=== PATIENT | male | born 1985 | race Caucasian/White ===

== ENCOUNTER 2017-08-21 12:46 | Outpatient (CLI) | payer OTHER ==
--- OUTSIDE RECORDS SUMMARY | 2017-08-21 12:48 | XMS | Clinical Summary ---
:1985 Author Organization [facility] Address [address] [place] [address] Phone Care Team Providers Name Role Phone , Primary Care Provider Unavailable Allergies Not on File Current Medications Not on file Active Problems Not on file Social History Tobacco Use Types Packs/Day Years Used Date Never Assessed Sex Assigned at Date Recorded Not on file Last Filed Vital Signs Not on file Plan of Treatment Not on file Results Not on filefrom Last 3 Months
--- NOTE | 2017-08-21 14:53 | RAD ---
FOUR VIEWS OF THE LUMBAR SPINE: Comparison: None. History: Prior back surgery at L4-5 in 2015 with back pain radiating down the right leg. FINDINGS: AP, lateral, flexion, and extension views of the lumbosacral spine shows normal height and alignment of the vertebral bodies without fracture or subluxation. Alignment is unchanged with flexion and ex tension. There appears to be mild posterior facet arthrosis in the lower lumbosacral spine. IMPRESSION: No evidence of acute lumbar spine abnormality. POS: [facility]
--- NOTE | 2017-08-21 15:57 | MRI ---
EXAM: LUMBAR SPINE MRI WITHOUT CONTRAST 08/21/17 HISTORY: Back surgery at L4-5 in 2014. Back pain radiating down the right leg. COMPARISON: None. TECHNIQUE: The lumbar spine MRI is performed without intravenous gadolinium administration. Multisequential, mu ltiplanar imaging is performed. FINDINGS: Appropriate T1 marrow signal intensity of the lumbar vertebrae. Lumbar spine vertebral height is delonte ntained. There is no fracture. No significant STIR hyperintensity to suggest vertebral body edema du e to fracture. No MR evidence of ligamentous injury. There is symmetric signal intensity of the psoas muscles. Appropriate signal intensity in the visual ized solid organs. The conus medullaris terminates at the superior end plate of T12. There are posterior decompressive laminectomy changes at L4-L5. T11-T12: Broad based disc bulge abuts the thecal sac. There is mild mass effect upon the thoracic co rd. At least mild central canal stenosis. Neural foramina are patent bilaterally. T12-L1: Adequate disc hydration. No significant central canal stenosis. Neural foramina are patent. L1-L2: Adequate disc hydration. No significant central canal stenosis. Neural foramina are patent. L2-L3: Adequate disc hydration. No significant central canal stenosis. Neural foramina are patent. L3-L4: Adequate disc hydration. No significant central canal stenosis. Neural foramina are patent. L4-L5: Disc desiccation with moderate loss of disc space height. There is a central/left subarticula r disc protrusion. Disc material obscures the traversing left L5 nerve root and causes mild mass eff ect on the traversing left S1 nerve root. There is also mild narrowing of the right subarticular zon e with disc material abutting but not obscuring the traversing right L5 nerve root. Mild right and m oderate left neural foraminal narrowing. L5-S1: Disc desiccation with moderate to severe loss of disc space height. There is a generalized di sc bulge. Disc material encroaches upon the right subarticular zone and causes partial obscuration o f the traversing right S2 nerve root. No significant mass effect involving the thecal sac. However, there is mild mass effect and minimal obscuration of the traversing left S1 nerve root. Mild bilater al foraminal narrowing. IMPRESSION: 1. Degenerative disc disease at L4-L5. There is mass effect and obscuration of the traversing l eft L5 nerve root along with mass effect without obscuration traversing the left S1 nerve root. 2. Degenerative disc disease at L5-S1. There is asymmetric right greater than left subarticular zone narrowing. There is mass effect in the bilateral S1 nerve roots, right greater than left. POS: [facility]
== END 2017-08-21 12:47 | disposition home or self-care (01) ==
LOC: SCSMRI 12:46
PROVIDERS: ATTEND Neurological Surgery
DX: M51.16 Intervertebral disc disorders with radiculopathy, lumbar region (principal); M51.17 Intervertebral disc disorders with radiculopathy, lumbosacral region
CPT/HCPCS: 72110; 72148